=== PATIENT | female | born 1990 | race Caucasian/White ===

== ENCOUNTER 2018-08-05 13:12 | Emergency (ER) | payer MEDICAID ==
[2018-08-05 13:50] LABS: BASOPHILS % (AUTO) 0.6 %; EOSINOPHILS # (AUTO) 0.1 10^3/uL (0.0-0.7); EOSINOPHILS % (AUTO) 0.7 %; HGB - HEMOGLOBIN 13.8 g/dL (12.0-16.0); LYMPHOCYTES # (AUTO) 1.7 10^3/uL (1.5-3.5); LYMPHOCYTES % (AUTO) 19.3 %; MEAN CORPUSCULAR HEMOGLOBIN 29.3 pg (27.0-31.0); MEAN CORPUSCULAR HGB CONC 33.6 g/dL (32.0-36.0); MEAN CORPUSCULAR VOLUME 87.2 fL (81.0-99.0); MEAN PLATELET VOLUME 8.7 fL (7.9-10.8); MONOCYTES # (AUTO) 0.6 10^3/uL (0.0-1.0); MONOCYTES % (AUTO) 6.9 %; NEUTROPHILS # (AUTO) 6.5 10^3/uL (1.5-6.6); NEUTROPHILS % (AUTO) 72.5 %; PLT - PLATELET COUNT 197 10^3/uL (130-450); RED BLOOD COUNT 4.73 10^6/uL (4.20-5.40); RED CELL DISTRIBUTION WIDTH 13.6 % (12.0-15.0)
[2018-08-05 14:17] LABS: BILIRUBIN,TOTAL 0.4 mg/dL (0.2-1.0); CALCIUM 9.3 mg/dL (8.5-10.3); TOTAL PROTEIN 7.7 g/dL (6.7-8.2)
[2018-08-05 14:22] LABS: ALBUMIN 4.5 g/dL (3.2-5.5); ALBUMIN/GLOBULIN RATIO 1.4 (1.0-2.2); CREATININE 0.7 mg/dL (0.4-1.0)
--- NOTE | 2018-08-05 17:51 | ED Physician Documentation ---
PD HPI ABD PAIN - Stated complaint Stated Complaint: R SIDE/BACK PX - Chief complaint Chief Complaint: Abd Pain - History obtained from History obtained from: Patient - History of Present Illness Timing - onset: How many days ago (several days of pain RLQ when bends and moves. She is , without any vaginal bleeding nor discahrge.) Timing - duration: Days Timing - details: Gradual onset, Still present, Intermittant Quality: Aching, Sharp, Pain Location: RLQ Radiation: No: Chest, Right flank Improved by: Laying still, Position. No: Eating Worsened by: Moving, Position. No: Eating, Breathing, Palpation Associated symptoms: Nausea. No: Fever, Vomiting, Diarrhea, Dysuria, Vaginal bleeding, Vaginal dc Similar symptoms before: Has not had sx before Recently seen: Not recently seen Review of Systems Constitutional: denies: Fever Nose: denies: Rhinorrhea / runny nose, Congestion Throat: denies: Sore throat Respiratory: denies: Cough GI: denies: Nausea, Vomiting, Diarrhea : reports: Now EGA. denies: Discharge Musculoskeletal: denies: Neck pain, Back pain PD PAST MEDICAL HISTORY - Past Medical History Past Medical History: No Respiratory: None Neuro: None - Past Surgical History Past Surgical History: Yes - Present Medications Home Medications: Ambulatory Orders Medication Instructions Recorded Confirmed Metronidazole [Flagyl] 500 mg PO BID #20 tablet 08/05/18 Naproxen 375 mg PO BID #20 tablet 08/05/18 Ondansetron Odt [Zofran] 4 mg TL Q6H PRN #10 tablet 08/05/18 Vitamin [Trinatal Rx 1] 08/05/18 - Allergies Allergies/Adverse Reactions: Allergies Allergy/AdvReac Type Severity Reaction Status Date / Time No Known Drug Allergies Allergy Verified 08/05/18 13:24 - Social History Does the pt smoke?: No Smoking Status: Never smoker Does the pt drink ETOH?: No Does the pt have substance abuse?: No - Immunizations Immunizations are current?: Yes - POLST Patient has POLST: No PD ED PE NORMAL - Vitals Vital signs reviewed: Yes - General General: Alert and oriented X 3, No acute distress, Well developed/nourished - HEENT HEENT: Moist mucous membranes, Pharynx benign - Neck Neck: Supple, no meningeal sign, No adenopathy - Cardiac Cardiac: RRR, No murmur - Respiratory Respiratory: Clear bilaterally - Abdomen Abdomen: Soft, Non tender - Female Female : Deferred - Rectal Rectal: Deferred - Back Back: No CVA TTP - Derm Derm: Normal color, Warm and dry - Neuro Neuro: Alert and oriented X 3, No motor deficit, Normal speech Results - Vitals Vitals: Oxygen O2 Source Room air - Labs Labs: Microbiology 08/05/18 Unknown Urine Culture - Final Urine,Clean Catch 10-50,000 COLONIES/ML Polymicrobial growth including potential pathogens. This is suggestive of skin or other contamination. Laboratory Tests 08/05/18 08/05/18 08/05/18 13:25 13:43 13:43 WBC 9.0 RBC 4.73 Hgb 13.8 Hct 41.2 MCV 87.2 MCH 29.3 MCHC 33.6 RDW 13.6 Plt Count 197 MPV 8.7 Neut # (Auto) 6.5 Lymph # (Auto) 1.7 [place] # (Auto) 0.6 Eos # (Auto) 0.1 Baso # (Auto) 0.0 Absolute Nucleated RBC 0.00 Nucleated RBC % 0.0 Sodium 137 Potassium 3.4 L Chloride 100 L Carbon Dioxide 24 Anion Gap 13.0 BUN 11 Creatinine 0.7 Estimated GFR (MDRD) 100 Glucose 147 H Calcium 9.3 Total Bilirubin 0.4 AST 24 ALT 23 Alkaline Phosphatase 75 Total Protein 7.7 Albumin 4.5 Globulin 3.2 Albumin/Globulin Ratio 1.4 Lipase 29 HCG, Quant 77839.00 Urine Color Urine Clarity Urine pH Ur Specific [place] Urine Protein Urine Glucose (UA) Urine Ketones Urine Occult Blood Urine Nitrite Urine Bilirubin Urine Urobilinogen Ur Leukocyte Esterase Urine RBC Urine WBC Ur Squamous Epith Cells Urine Bacteria Urine Mucus Urine Trichomonas Ur Microscopic Review Urine Culture Comments Urine HCG, Qual 08/05/18 Unknown WBC RBC Hgb Hct MCV MCH MCHC RDW Plt Count MPV Neut # (Auto) Lymph # (Auto) [place] # (Auto) Eos # (Auto) Baso # (Auto) Absolute Nucleated RBC Nucleated RBC % Sodium Potassium Chloride Carbon Dioxide Anion Gap BUN Creatinine Estimated GFR (MDRD) Glucose Calcium Total Bilirubin AST ALT Alkaline Phosphatase Total Protein Albumin Globulin Albumin/Globulin Ratio Lipase HCG, Quant Urine Color YELLOW Urine Clarity CLEAR Urine pH 6.5 Ur Specific [place] 1.025 Urine Protein NEGATIVE Urine Glucose (UA) NEGATIVE Urine Ketones NEGATIVE Urine Occult Blood NEGATIVE Urine Nitrite NEGATIVE Urine Bilirubin NEGATIVE Urine Urobilinogen 0.2 (NORMAL) Ur Leukocyte Esterase SMALL H Urine RBC 0-5 Urine WBC 6-10 H Ur Squamous Epith Cells FEW Squamous Urine Bacteria Few Urine Mucus Few Strands Urine Trichomonas PRESENT H Ur Microscopic Review INDICATED Urine Culture Comments INDICATED Urine HCG, Qual POSITIVE - Rads (name of study) OB U/S Radiology: Prelim report reviewed (IUP reported by [facility]. Right ovarian cyst as well.) PD MEDICAL DECISION MAKING - ED course Complexity details: reviewed results (reported IUP by Radiologist. Also cyst/complex cyst right ovary. Appendix not seen. Trich noted on UA. ), re- evaluated patient (Has IUP, so not ectopic. Has cyst right ovary, which could account for her pain. Doubt heterotopic , would be very rare. ), considered differential, d/w patient Departure - Departure Disposition: Home, Self Care Clinical Impression: Right lower quadrant abdominal pain, Bacterial vaginitis Qualifiers: Weeks of gestation: less than 8 weeks Qualified Code(s): Z3A.01 - Less than 8 weeks gestation of Ovarian cyst Qualifiers: Laterality: right Qualified Code(s): N83.201 - Unspecified ovarian cyst, right side Condition: Stable Record reviewed to determine appropriate education?: Yes Instructions: ED Abdominal Pain Unkn Cause, ED Cyst Ovarian Follow-Up: Billie Starks MD [Physician No Access] - [facility] [Provider Group] Prescriptions: Metronidazole [Flagyl] 500 mg PO BID #20 tablet Naproxen 375 mg PO BID #20 tablet Ondansetron Odt [Zofran] 4 mg TL Q6H PRN #10 tablet PRN Reason: Nausea / Vomiting Comments: The ultrasound report says there is a intrauterine that is early so heartbeat and such are not identified at just yet. There is a cyst on the ovary to the right with a little bit of free fluid that suggests there may be some leaking to it. They did not identify the appendix but there is no secondary signs of appendicitis and your blood count is normal. Your urine does show presence of a vaginal bacteria and we will treat that as that may be causing some of the cramping and pains. The cyst may also be as well. You can use naproxen anti-inflammatory twice daily to help with the pains. Flagyl twice daily for the infection. Ondansetron if needed for nausea. Add Tylenol if need ed for pain. Recheck if not improving over the next several days to a week. Return if worsening. Follow-up with DIG[facility] PR[facility]PER[facility] at their earliest availability. Discharge Date/Time: 08/05/18 21:26
[2018-08-05 17:53] LABS: BILIRUBIN,URINE NEGATIVE (NEGATIVE); GLUCOSE, URINE (UA) NEGATIVE (NEGATIVE); KETONES,URINE (UA) NEGATIVE (NEGATIVE); LEUKOCYTE ESTERASE, URINE SMALL (NEGATIVE); NITRITE,URINE NEGATIVE (NEGATIVE); OCCULT BLOOD,URINE NEGATIVE (NEGATIVE); PH,URINE 6.5 PH (5.0-7.5); PROTEIN,URINE NEGATIVE (NEGATIVE); UROBILINOGEN,URINE 0.2 (NORMAL) E.U./dL (NORMAL)
[2018-08-05 17:57] LABS: CLARITY,URINE CLEAR (CLEAR); HCG UR QUAL POSITIVE
[2018-08-05 18:15] LABS: BACTERIA,URINE Few /HPF (None Seen); MUCUS,URINE Few Strands; RBC,URINE 0-5 /HPF (0-5); SQUAMOUS EPITHELIAL CELL,UR FEW Squamous (<= Few); TRICHOMONAS,URINE PRESENT (None Seen)
--- NOTE | 2018-08-05 20:17 | Ultrasound Report ---
Reason: early preg; RLQ pain; eval appendix and kidney Procedure Date: 08/05/2018 Accession Number: [id number] / [id number] Procedure: US - Abdomen Limited CPT Code: FULL RESULT: EXAM: ABDOMEN ULTRASOUND LIMITED EXAM DATE: 08/05/2018 07:15 PM. CLINICAL HISTORY: Early preg; RLQ pain; COMPARISON: None. TECHNIQUE: Real-time scanning was performed with static images obtained. FINDINGS: Right lower quadrant ultrasound performed. The appendix is not seen. No calcified appendicolith. No enlarged lymph nodes. No simple or complex free fluid. No thickened bowel loops. Patient tolerated compression well. IMPRESSION: Appendix not visualized. No secondary signs of acute appendicitis. No abnormal fluid collection or right lower quadrant abnormality to explain pain. [facility]
--- NOTE | 2018-08-05 20:33 | Ultrasound Report ---
Reason: early preg; RLQ pain Procedure Date: 08/05/2018 Accession Number: [id number] / [id number] Procedure: US - OB First Trimester CPT Code: FULL RESULT: EXAM: FIRST TRIMESTER OBSTETRIC ULTRASOUND (Less than 11 weeks) EXAM DATE: 08/05/2018 07:21 PM. CLINICAL HISTORY: Early preg; RLQ pain. LMP: Question 06/22/2018, but not definitive. COMPARISONS: None. TECHNIQUE: Transabdominal and transvaginal ultrasound examination with static image documentation. CLINICAL DATES: EGA 6 weeks 2 days with SHALOM 03/29/2019 based on LMP. ASSESSMENT: Gestational Sac: Single intrauterine. Mean gestational sac diameter: 9.5 mm = 5 weeks 0 days. Embryo: CRL (crown-rump length) not visualized. Cardiac activity: Not visualized . Yolk sac: 2.4 mm. Amniotic fluid: Not accurately assessed at this gestational age. Early placenta: Not visible at this gestational age. Other: There is a small perigestational fluid collection. MATERNAL STRUCTURES: Uterus: Anteverted. Unremarkable. Cervix: Closed. Right Ovary/Adnexa: The ovary measures 4.5 x 3.6 x 3.4 cm, volume 28.6 cc. There are 2 adjacent cysts or an irregular shaped complex cyst. 1 of the cysts measures 2.6 x 2.0 cm. Other cyst measures 3.5 x 2.1 x 3.6 cm. Left Ovary/Adnexa: The ovary measures 2.2 x 1.3 x 1.9 cm, volume 2.8 cc. Unremarkable. Free Fluid: Trace. Other: None. IMPRESSION: 1. Intrauterine gestational sac with yolk sac, too small and early to visualize crown-rump length and evaluate for cardiac activity. The differential diagnosis would include normal early intrauterine , blighted ovum, and an embryonic . Follow-up recommended. [facility]
[2018-08-05] MEDS ORDERED: IBUPROFEN 600 MG TABLET PO STA (21:16)
[2018-08-05] MEDS ORDERED: metroNIDAZOLE 250 MG TABLET PO STA (21:16)
[2018-08-05] MEDS ORDERED: ACETAMINOPHEN 325 MG TABLET PO STA (21:16)
[2018-08-05 21:26] VITALS: BP 122/75
== END 2018-08-05 21:26 | disposition home or self-care (01) ==
LOC: ED 13:12
DX: O23.591 Infection of other part of genital tract in pregnancy, first trimester (principal); O34.81 Maternal care for other abnormalities of pelvic organs, first trimester; N83.291 Other ovarian cyst, right side
CPT/HCPCS: 36415; 76705; 76801; 76817; 80053; 81001; 81003; 81025; 83690; 84702; 85025; 87086; 99283

== ENCOUNTER 2018-08-23 16:47 | Outpatient (CLI) | payer MEDICAID ==
--- NOTE | 2018-08-24 02:02 | Ultrasound Report ---
Reason: TEST POSITIVE Procedure Date: 08/23/2018 Accession Number: [id number] / [id number] Procedure: US - OB First Trimester CPT Code: FULL RESULT: EXAM: FIRST TRIMESTER OBSTETRIC ULTRASOUND (Less than 11 weeks) EXAM DATE: 08/23/2018 05:14 PM. CLINICAL HISTORY: test positive. LMP: 06/21/2018, 9 weeks 0 days. COMPARISONS: None. TECHNIQUE: Transabdominal ultrasound examination with static image documentation. FINDINGS: Gestational Sac: An intrauterine fluid-filled sac contains both an embryo and yolk sac. Small perigestational bleed present. Embryo: CRL (crown-rump length) measures 16.6 mm corresponding to an estimated gestational age of 8 weeks 1 day. Heart Rate: 163 beats per minute. Placenta: Not visible at this gestational age. Amniotic fluid: Not accurately assessed at this gestational age. Uterus: Unremarkable anteverted appearance. Cervix: Closed. Right Ovary: 5.3 x 5.8 x 3.2 cm. Contains a couple of cysts measuring up to 3.2 cm. Normal blood flow. Left Ovary: 2.7 x 1.9 x 2.0 cm. Normal echotexture and blood flow. Free Fluid: None. Other: None. IMPRESSION: Single live intrauterine at 9 weeks 0 days by LMP, today's exam is concordant -- for an estimated delivery date of 03/28/2019. JUAN CARLOS
== END 2018-08-23 16:48 | disposition home or self-care (01) ==
LOC: DI 16:47
PROVIDERS: ATTEND Registered Nurse
DX: Z32.01 Encounter for pregnancy test, result positive (principal)
CPT/HCPCS: 76801

== ENCOUNTER 2018-09-02 08:00 | Outpatient (CLI) | payer MEDICAID | END 2018-09-02 23:59 | disposition home or self-care (01) | LOC: LAB.R 08:00 | PROVIDERS: ATTEND Nurse Practitioner Obstetrics & Gynecology | DX: Z36.89 Encounter for other specified antenatal screening (principal) | CPT/HCPCS: 87491; 87591 ==

== ENCOUNTER 2018-11-06 07:51 | Outpatient (CLI) | payer OTHER, MEDICAID ==
--- NOTE | 2018-11-06 17:14 | Ultrasound Report ---
Reason: SUPERVISION OF Procedure Date: 11/06/2018 Accession Number: [id number] / [id number] Procedure: US - OB Detailed Eval CPT Code: FULL RESULT: EXAM: COMPLETE OBSTETRICAL ULTRASOUND EXAM DATE: 11/06/2018 08:17 AM. CLINICAL HISTORY: anatomic survey. COMPARISON: 08/23/2018 4:59 PM. TECHNIQUE: Real-time sonographic evaluation of the fetus performed by the area sales manager. Multiple service representative static images were saved for review. DATING: Established EGA 19 weeks 5 days with SHALOM 03/28/2019 based on LMP/physician stated. EGA 18 weeks 6 days with SHALOM 04/03/2019 based on prior ultrasound. EGA 18 weeks 0 days with SHALOM 04/09/2019 based on the current ultrasound. GENERAL EVALUATION Colon . Cardiac activity: 152 bpm. movement: Visualized. Presentation: Variable Placenta: Anterior position. Low lying; lower margin is 2 cm from the internal os. Umbilical cord: 3 vessel cord. Central placental cord origin. Amniotic fluid: Subjectively normal with REN of 12.4 cm. MVP 3.8 cm. BIOMETRY Bi-Parietal Diameter (BPD): 4.2 cm, 18 weeks 5 days Head Circumference (HC): 15.83 cm, 18 weeks 5 days Abdominal Circumference (AC): 13.6 cm, 19 weeks 0 days Femur Length (FL): 2.69 cm, 18 weeks 1 day Estimated Weight: 251 g, 7th percentile for 19 weeks 5 days. Note: Estimated weight of 251 g would be at the 34th percentile using dating from first ultrasound. ANATOMY The intracranial structures, profile, face/nose/lips, spine, 4 chamber heart and outflow tracts, stomach, abdominal wall and cord insertion, diaphragm, kidneys, bladder, and extremities were visualized and demonstrate no abnormality. MATERNAL STRUCTURES Uterus: Unremarkable. Cervix: Long and closed. Transabdominal length 4.1 cm. Right ovary/adnexa: Contains a 3.7 cm anechoic thin-walled simple-appearing cyst. Left ovary/adnexa: Unremarkable. Free fluid: None. IMPRESSION: 1. Colon live intrauterine with gestational age 19 weeks 5 days based on physician stated/LMP. 2. Estimated weight is at the 7th percentile for assigned dating. Note: Estimated weight would be at the 34th percentile using dating from first ultrasound. Recommend short-interval follow-up to assess interval growth and low lying placenta. 3. Normal anatomic survey. No anatomic abnormalities are detected at this time. [facility]
== END 2018-11-06 07:52 | disposition home or self-care (01) ==
LOC: DI 07:51
PROVIDERS: ATTEND Registered Nurse
DX: Z34.90 Encounter for supervision of normal pregnancy, unspecified, unspecified trimester (principal)
CPT/HCPCS: 76811